=== PATIENT | female | born 1955 | race Caucasian/White ===

== ENCOUNTER 2024-12-14 12:12 | Inpatient (IN) | payer MEDICARE, MEDICAID ==
[~2024-12-14] VITALS: Ht 165.1 cm; Wt 63.5 kg
[2024-12-14 12:50] LABS: PLATELET COUNT (AUTO) 294 K/uL (150-450); RED BLOOD CELL COUNT(AUTO) 4.14 MIL/uL (4.00-5.20); RED CELL DISTRIBUTION WIDTH 14.4 % (11.5-14.5); WHITE BLOOD COUNT (AUTO) 6.7 K/uL (4.5-11.0)
[2024-12-14 13:04] LABS: CALCIUM, TOTAL 9.5 mg/dL (8.8-10.5); CREATININE 0.74 mg/dL (0.60-1.30); GLOMERULAR FILTR. RATE CALC > 60 mL/min (>60); GLUCOSE,RANDOM 214 mg/dL (70-110); SODIUM SERUM 136 mmol/L (136-145); TROPONIN I-HIGH SENSITIVITY 8 ng/L (<51); UREA NITROGEN, BLOOD 12 mg/dL (7-18)
[2024-12-14 13:08] LABS: ASPARTATE AMINOTRANSFERASE 175.0 U/L (15-37); CREATINE KINASE, TOTAL ONLY 65.0 U/L (26-192); TOTAL PROTEIN, SERUM 8.8 g/dL (6.4-8.2)
[2024-12-14] MEDS ORDERED: DEXTROSE 50%-WATER 25 GM/50 ML SYRINGE IVP PRN (14:15)
[2024-12-14] MEDS ORDERED: ONDANSETRON HCL 4 MG/2 ML VIAL IVP PRN (14:15)
[2024-12-14 14:50] LABS: TROPONIN I-HIGH SENSITIVITY 8 ng/L (<51)
[2024-12-14 15:15] VITALS: BP 126/68; PULSE 57; RESP 16; TEMP 98.2; O2SAT 99
[2024-12-14] MEDS ORDERED: MEBROFENIN TC99M/MCL ISOTOPE 1 EA INJ INJ ONE (16:35)
[2024-12-14 18:37] LABS: TROPONIN I-HIGH SENSITIVITY 10 ng/L (<51)
[2024-12-14 18:40] LABS: GLUCOMETER DEV NAME(LOC) 5N.2C; GLUCOSE,POINT OF CARE 123 MG/DL (70-110)
[2024-12-14] MEDS: RINGERS SOLUTION,LACTATED 1,000 ML IV ONE (18:40)
[2024-12-14] MEDS: HEPARIN SODIUM,PORCINE 5,000 UNITS/ML VIAL SQ SCH (18:40)
[2024-12-14 20:40] VITALS: BP 145/50; PULSE 60; RESP 17; TEMP 97.9; O2SAT 97
[2024-12-14] MEDS: DOCUSATE SODIUM 100 MG CAPSULE PO SCH (21:00)
[2024-12-14] MEDS: INSULIN LISPRO 100 UNITS/ML SQ PRN (21:18)
[2024-12-14] MEDS: ACETAMINOPHEN 325 MG TABLET PO PRN (21:37)
[2024-12-15 00:06] VITALS: BP 122/53; PULSE 54; RESP 17; TEMP 97.5; O2SAT 96
[2024-12-15 00:46] LABS: GLUCOMETER DEV NAME(LOC) 5N.1D; GLUCOSE,POINT OF CARE 236 MG/DL (70-110)
[2024-12-15 01:30] LABS: APPEARANCE,URINE CLEAR (CLEAR); GLUCOSE, URINE (UA) >=1000 mg/dL (NEGATIVE); LEUKOCYTE ESTERASE ,URINE MODERATE (NEGATIVE); NITRATE,URINE NEGATIVE (NEGATIVE); OCCULT BLOOD,URINE NEGATIVE (NEGATIVE); SPECIFIC GRAVITIY, URINE 1.017 (1.003-1.030)
[2024-12-15 01:54] LABS: SQUAMOUS EPITHELIAL CELL,UR Few /LPF (None Seen)
[2024-12-15 06:10] LABS: PLATELET COUNT (AUTO) 291 K/uL (150-450); RED BLOOD CELL COUNT(AUTO) 4.25 MIL/uL (4.00-5.20); RED CELL DISTRIBUTION WIDTH 14.6 % (11.5-14.5); WHITE BLOOD COUNT (AUTO) 7.5 K/uL (4.5-11.0)
[2024-12-15 06:22] LABS: ASPARTATE AMINOTRANSFERASE 152.0 U/L (15-37); TOTAL PROTEIN, SERUM 8.3 g/dL (6.4-8.2)
[2024-12-15 06:31] LABS: CALCIUM, TOTAL 9.1 mg/dL (8.8-10.5); CREATININE 0.75 mg/dL (0.60-1.30); GLOMERULAR FILTR. RATE CALC > 60 mL/min (>60); GLUCOSE,RANDOM 122 mg/dL (70-110); SODIUM SERUM 137 mmol/L (136-145); UREA NITROGEN, BLOOD 14 mg/dL (7-18)
[2024-12-15 06:40] VITALS: BP 123/56; PULSE 58; RESP 18; TEMP 97.5; O2SAT 96
[2024-12-15] MEDS ORDERED: GADOTERATE MEGLUMINE 10 MMOL/20 ML VIAL IVP ONE (09:45)
[2024-12-15 11:40] VITALS: BP 146/51; PULSE 60; RESP 18; TEMP 97.2; O2SAT 95
[2024-12-15 16:07] VITALS: BP 150/61; PULSE 62; RESP 18; TEMP 98.8; O2SAT 96
[2024-12-15 19:50] LABS: GLUCOMETER DEV NAME(LOC) 5N.1D; GLUCOSE,POINT OF CARE 133 MG/DL (70-110)
[2024-12-15 19:50] LABS: GLUCOMETER DEV NAME(LOC) 5N.1D; GLUCOSE,POINT OF CARE 317 MG/DL (70-110)
[2024-12-15 20:16] VITALS: BP 138/44; PULSE 59; RESP 16; TEMP 97.9; O2SAT 97
[2024-12-16] VITALS (7 sets, daily range): BP systolic 118–148; BP diastolic 43–72; PULSE 53–66; RESP 16–18; TEMP 97.4–97.9; O2SAT 96–100
[2024-12-16 03:01] LABS: GLUCOMETER DEV NAME(LOC) 5N.2C; GLUCOSE,POINT OF CARE 183 MG/DL (70-110)
[2024-12-16 06:20] LABS: PLATELET COUNT (AUTO) 310 K/uL (150-450); RED BLOOD CELL COUNT(AUTO) 4.16 MIL/uL (4.00-5.20); RED CELL DISTRIBUTION WIDTH 14.8 % (11.5-14.5); WHITE BLOOD COUNT (AUTO) 7.1 K/uL (4.5-11.0)
[2024-12-16 06:47] LABS: ASPARTATE AMINOTRANSFERASE 163 U/L (15-37); CALCIUM, TOTAL 9.3 mg/dL (8.8-10.5); CREATININE 0.70 mg/dL (0.60-1.30); GLOMERULAR FILTR. RATE CALC > 60 mL/min (>60); GLUCOSE,RANDOM 140 mg/dL (70-110); SODIUM SERUM 136 mmol/L (136-145); TOTAL PROTEIN, SERUM 8.6 g/dL (6.4-8.2); UREA NITROGEN, BLOOD 14 mg/dL (7-18)
[2024-12-16 09:19] LABS: ASPARTATE AMINOTRANSFERASE 167.0 U/L (15-37); TOTAL PROTEIN, SERUM 8.6 g/dL (6.4-8.2)
[2024-12-16 11:31] LABS: GLUCOMETER DEV NAME(LOC) 5N.1D; GLUCOSE,POINT OF CARE 148 MG/DL (70-110)
[2024-12-16 11:46] LABS: GLUCOMETER DEV NAME(LOC) 5N.2C; GLUCOSE,POINT OF CARE 150 MG/DL (70-110)
[2024-12-16] MEDS ORDERED: SESTAMIBI TC99M/UD ISOTOPE 1 EA INJ INJ ONE ×2 (15:20→16:45)
[2024-12-16] MEDS: REGADENOSON 0.4 MG/5 ML PF SYRINGE IVP ONE (16:49)
[2024-12-16] MEDS ORDERED: REGADENOSON 0.4 MG/5 ML PF SYRINGE IVP ONE (17:04)
[2024-12-16 18:36] LABS: GLUCOMETER DEV NAME(LOC) 5N.1D; GLUCOSE,POINT OF CARE 254 MG/DL (70-110)
[2024-12-16 23:21] LABS: GLUCOMETER DEV NAME(LOC) 5N.1D; GLUCOSE,POINT OF CARE 228 MG/DL (70-110)
[2024-12-17 03:30] VITALS: BP 140/67; PULSE 55; RESP 19; TEMP 97.9; O2SAT 97
[2024-12-17 06:40] LABS: GLUCOMETER DEV NAME(LOC) 5N.2C; GLUCOSE,POINT OF CARE 159 MG/DL (70-110)
[2024-12-17 08:12] VITALS: BP 132/52; PULSE 58; RESP 18; TEMP 98; O2SAT 97
[2024-12-17 09:32] LABS: ASPARTATE AMINOTRANSFERASE 174.0 U/L (15-37); TOTAL PROTEIN, SERUM 8.4 g/dL (6.4-8.2)
[2024-12-17 11:13] VITALS: BP 116/44; PULSE 64; RESP 18; TEMP 98.2; O2SAT 96
[2024-12-17] MEDS ORDERED: EMPA25TA3 PO (11:57)
[2024-12-17] MEDS ORDERED: ATOR40TA71 PO (11:57)
[2024-12-17] MEDS ORDERED: CLOP75TA32 PO (11:58)
[2024-12-17] MEDS ORDERED: DENO60DI SQ (12:32)
[2024-12-17] MEDS ORDERED: OLAN10TA74 PO (12:33)
[2024-12-17] MEDS ORDERED: MULT-1203 PO (12:34)
[2024-12-17] MEDS ORDERED: RISP125S SQ (12:34)
[2024-12-17] MEDS ORDERED: ALEN70TA65 PO (12:34)
[2024-12-17] MEDS ORDERED: METF-1211 PO (12:35)
[2024-12-17] MEDS ORDERED: ASPI-1450 PO (12:39)
[2024-12-17] MEDS ORDERED: CHOL25TA4 PO (12:39)
[2024-12-17] MEDS ORDERED: CALC-1085 PO (12:40)
[2024-12-17 16:46] LABS: GLUCOMETER DEV NAME(LOC) 5N.2C; GLUCOSE,POINT OF CARE 169 MG/DL (70-110)
== END 2024-12-17 15:50 | disposition home health service (06) | DRG 311 ==
LOC: EDBD 12:19 → EMS 12:19 → EDH 14:11 → 5N 15:10
PROVIDERS: ADMIT Internal Medicine; ATTEND Internal Medicine
DX: I24.9 Acute ischemic heart disease, unspecified (principal); R74.01 Elevation of levels of liver transaminase levels; E11.65 Type 2 diabetes mellitus with hyperglycemia; E78.00 Pure hypercholesterolemia, unspecified; F20.9 Schizophrenia, unspecified; I10 Essential (primary) hypertension; F03.90 Unspecified dementia, unspecified severity, without behavioral disturbance, psychotic disturbance, mood disturbance, and anxiety; Z60.3 Acculturation difficulty; R00.1 Bradycardia, unspecified; K80.20 Calculus of gallbladder without cholecystitis without obstruction
CPT/HCPCS: 71045; 76705; 78226; 78452; 80048; 80053; 80076; 81001; 82248; 82550; 82962; 83690; 83735; 83880; 84484; 85025; 85610; 85730; 93005; 93306; 99285; A9500; A9537; J1644; J2785; J7120; 36415-L1; 36415-TC